=== PATIENT | male | born 2000 | race Two or more races ===

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

== ENCOUNTER 2024-12-13 18:11 | Emergency (ER) | payer OTHER ==
[~2024-12-13] VITALS: Ht 177.8 cm; Wt 97.7 kg
[2024-12-13 18:49] VITALS: BP 121/89; PULSE 95; RESP 17; TEMP 98; O2SAT 99
[2024-12-13] MEDS: HYDROcodone-ACET 5/325MG TAB PO ONE (20:29)
[2024-12-13] MEDS: KETOROLAC TROMETH 60MG/2ML VIAL IM ONE (20:30)
[2024-12-13] MEDS: TETANUS-DIPTH-ACEL PERTUSSIS 0.5ML SYR Tdap IM ONE (20:30)
--- NOTE | 2024-12-13 20:41 | DVH ---
CLINICAL INDICATION: Hand trauma TECHNIQUE: radiographic views of the were obtained. Comparison: R HAND COMPLETE XRAY on DOS: 05/11/20 FINDINGS/IMPRESSION: No osseous or joint abnormality with no fracture or dislocation. Joint spaces are normal.
[2024-12-13] MEDS ORDERED: IBUP-1455 PO (21:08)
[2024-12-13] MEDS ORDERED: ACET500T58 PO (21:08)
[2024-12-13] MEDS ORDERED: BACIOIN15 TOP (21:08)
--- NOTE | 2024-12-13 21:09 | ED.PDOC ---
Musculoskeletal HPI Comments Patient is a obese 24-year-old male who arrives the ED today for evaluation of right hand pain concerns for the past several hours. Patient's dog and a neighbor's dog were involved in a fight between a fence. Patient attempted to punch the other dog away through the fence and arrives with a pain to his right hand. Abrasions noted. No active bleed. Patient's tetanus is not up-to-date. Chief Complaint: Lower Extremity Time Seen by MD: 18:57 Reviewed Notes: Nurses Notes Allergies: Coded Allergies: No Known Drug Allergy (Verified Allergy, Unknown, 05/10/20) Information Source: Patient, Friend Mode of Arrival: Ambulatory Location: Right Extremity Location: Hand Timing: Hours Prehospital treatment: None Severity: Moderate Able to Move Extremity: Yes Bear Weight: Fully Pain: Moderate Hand Dominance: Right Mechanism: Blunt Trauma Circumstances: Altercation Onset of Symptoms: After Trauma Symptoms: Swelling, Pain DVT Risk Factors: NONE Last Tetanus: > 5 Years Past Medical History PAST MEDICAL HISTORY: Denies Surgical History: Denies all surgeries Family History Family History: Reviewed,noncontributory to illness, No family hx of Cancer, No family hx of DM, No family hx of Heart fabricio, No family hx of HTN, No family hx ofKidney fabricio, No family hx of Liver fabricio, No family hx of Lung fabricio, No family hx of Stroke Social History Smoker: Non-Smoker Alcohol: Denies ETOH Use Drugs: Marijuana Lives In: Home Constitutional: denies: chills, diaphoresis, fatigue, fever, malaise, sweats, weakness, others EENTM: denies: blurred vision, double vision, ear bleeding, ear discharge, ear drainage, ear pain, ear ringing, eye pain, eye redness, hearing loss, mouth pain, mouth swelling, nasal discharge, nose bleeding, nose congestion, nose pain, photophobia, tearing, throat pain, throat swelling, voice changes, others Respiratory: denies: cough, hemoptysis, orthopnea, SOB at rest, shortness of breath, SOB with excertion, stridor, wheezing, others Cardiovascular: denies: chest pain, dizzy spells, diaphoresis, Dyspnea on ex ertion, edema, irregular heart beat, left arm pain, lightheadedness, palpitations, PND, syncope, others Gastrointestinal: denies: abdomen distended, abdominal pain, blood streaked bowels, constipated, diarrhea, dysphagia, difficulty swallowing, hematemesis, melena, nausea, poor appetite, poor fluid intake, rectal bleeding, rectal pain, vomiting, others Genitourinary: denies: burning, dysuria, flank pain, frequency, hematuria, incontinence, penile discharge, penile sore, pain, testicle pain, testicle swelling, urgency, others Neurological: denies: dizziness, fainting, headache, left sided numbness, left sided weakness, numbness, paresthesia, pre-existing deficit, right sided numbness, right sided weakness, seizure, speech problems, tingling, tremors, weakness, others Musculoskeletal: reports: others (Right hand pain and swelling); denies: back pain, gout, joint pain, joint swelling, muscle pain, muscle stiffness, neck pain Integumetry: denies: bruises, change in color, change in hair/nails, dryness, laceration, lesions, lumps, rash, wounds, others Allergic/Immunocompromised: denies: Difficulty Healing, Frequent Infections, Hives, Itching, others Hematologic/Lymphatic: denies: anemia, blood clots, easy bleeding, easy bruising, swollen glands, others Endocrine: denies: excessive hunger, excessive sweating, excessive thirst, excessive urination, flushing, intolerance to cold, intolerance to heat, unexplained weight gain, unexplained weight loss, others Psychiatric: denies: anxiety, bipolar disorder, depression, hopeless, panic disorder, schizophrenia, sleepless, suicidal, others Physical Exam General Appearance: Moderate Distress ( due to right hand pain concerns.), Normal HEENT: Normal ENT Inspection, Pharynx Normal, TMs Normal Neck: Full Range of Motion, Non-Tender, Normal, Normal Inspection Respiratory: Chest Non-Tender, Lungs Clear, No Accessory Muscle Use, No Respiratory Distress, Normal Breath Sounds Cardiovascular: No Edema, No JVD, No Murmur, No Gallop, Normal Peripheral Pulses, Regular Rate/Rhythm Breast Exam: Deferred Gastrointestinal: No Organomegaly, Non Tender, No Pulsatile Mass, Normal Bowel Sounds, Soft Genitalia: Deferred Pelvic: Deferred Rectal: Deferred Extremities: Other ( Right hand reveals diffuse edema with mild ecchymosis appreciated on the lateral knuckles. Multiple abrasions noted throughout the knuckle region. Moderate reduced range of motion. Distal neurovascularly intact.) Neurologic: Alert, No Motor Deficits, Normal Affect, Normal Mood, No Sensory Deficits Cerebellar Function: Normal Reflexes: Normal Skin: Dry, Normal Color, Warm Lymphatic: No Adenopathy Was a procedure done? Was a procedure done?: No Differential Diagnosis EXT Differential Diagnosis: Fracture, Sprain, Contusion, Strain X-Ray, Labs, Meds, VS Vital Signs Date Time Temp Pulse Resp B/P (MAP) Pulse Ox O2 Delivery O2 Flow Rate FiO2 12/13/24 18:49 98.0 95 17 121/89 (100) 99 98.0 12/13/24 18:43 95 17 99 Room Air 12/13/24 18:43 98.0 95 17 121/89 (100) 99 98.0 Current Medications Medications (Trade) Dose Ordered Sig/Francisco Route Start Time Stop Time Status Last Admin Diphtheria/ Tetanus/Acell Pertussis (Boostrix T-Dap) 0.5 ml ONCE ONCE IM 12/13/24 20:30 12/13/24 20:31 DC 12/13/24 20:30 Ketorolac Tromethamine (Toradol Injection) 30 mg ONCE ONCE IM 12/13/24 20:30 12/13/24 20:31 DC 12/13/24 20:30 Acetaminophen/ Hydrocodone Bitart ([place] 5/325MG Tab) 1 tab ONCE ONCE PO 12/13/24 20:30 12/13/24 20:31 DC 12/13/24 20:29 X-Ray, Labs, Meds, VS Comment All studies performed the ED were evaluated by me personally. Imaging studies were unremarkable for any acute fractures. Patient sustained a hand contusion with a abrasions. Advised topical antibiotics as well as pain medication as needed. Time of 1ST Reevaluation: 21:06 Reevaluation 1ST: Improved Consultation: PCP Patient Education/Counseling: Diagnosis, Treatment Family Education/Counseling: Diagnosis, Treatment Departure 1 Departure Time of Disposition: 21:07 Impression: Primary Impression: Contusion of hand, right Additional Impression: Multiple abrasions Disposition: HOME / SELF CARE / HOMELESS Condition: Stable Additional Instructions: Advised patient utilize topical antibiotic and daily dressing changes as well as pain medication as needed. Ice therapy has been advised. e-Prescriptions Acetaminophen (Acetaminophen) 500 Mg Tab 500 MG PO Q4HP PRN, #30 TAB Prov: DIANA GOODRICH PAC 12/13/24 Ibuprofen Micronized (Ibuprofen) 800 Mg Tab 800 MG PO Q8HP PRN, #20 TAB Prov: JOLEENDIANA WISEMAN PAC 12/13/24 Bacitracin Base (Bacitracin) 500 Unit/Gm Oin 500 UNIT TOP BID, #30 GM Prov: DIANA GOODRICH [facility] 12/13/24 Discharged With: Self, Friend Critical Care Note Critical Care Time?: No Stability Stability form required: No Heart Score Heart Score: Heart Score Response (Comments) Value History N/A 0 EKG N/A 0 Age N/A 0 Risk Factors N/A 0 Troponin N/A 0 Total 0 JOLEEN,DIANA Sharon PAC Dec 13, 2024 21:09
[2024-12-13] MEDS: NEOMYCIN-BACITRACIN-POLYM UNITDOSE PKG TOP OINT TOP ONE (21:17)
== END 2024-12-13 21:30 | disposition home or self-care (01) ==
LOC: ER 18:19
DX: S60.221A Contusion of right hand, initial encounter (principal); F12.90 Cannabis use, unspecified, uncomplicated; Y04.0XXA Assault by unarmed brawl or fight, initial encounter; Y93.89 Activity, other specified; Y92.89 Other specified places as the place of occurrence of the external cause; Y99.8 Other external cause status
CPT/HCPCS: 73130; 90471; 90715; 96372; 99284; J1885